=== PATIENT | male | born 1975 | race Caucasian/White ===

== ENCOUNTER 2022-04-11 21:37 | Inpatient (IN) | payer BC ==
[~2022-04-11] VITALS: Ht 165.1 cm; Wt 88.0 kg
--- NOTE | 2022-04-11 21:47 | NUR ---
Raoul gudino in [facility] - 04/11/22 at 2252 by [email or web address] PT TAKEN TO CT
[2022-04-11 21:50] VITALS: BP 160/100
--- NOTE | 2022-04-11 22:31 | NUR ---
ER MD AT BEDSIDE EXAMINING PT
--- NOTE | 2022-04-11 22:47 | NUR ---
PT TAKEN TO CT
[2022-04-11 22:48] LABS: BILIRUBIN,URINE NEGATIVE (NEGATIVE); BLOOD, URINE 3+ (NEGATIVE); COLOR,URINE YELLOW (YELLOW); LEUKOCYTE ESTERASE ,URINE NEGATIVE (NEGATIVE); NITRITE, URINE NEGATIVE (NEGATIVE); UGLUCOSE NEGATIVE (NEGATIVE)
--- NOTE | 2022-04-11 22:53 | NUR ---
47 Y/O MALE BIBS FROM HOME, C/O LEFT FLANK PAIN RAD TO BACK SINCE 1800. PT IS CURRENTLY IN NO PAIN. UNLABORED BREATHING; AMBULATORY W/O ASSISTANCE; A/OX4. DENIES FEVER, COUGH, CP, OR SOB. HX: KIDNEY STONES NKA
[2022-04-11 23:08] LABS: ANION GAP 12.5 (8-16); CARBON DIOXIDE 27.5 mmol/L (21-32); CREATININE 0.9 mg/dL (0.6-1.3)
[2022-04-11] MEDS ORDERED: HYDROcodone/APAP 5/325 MG 1 TAB TAB PO ONE (23:15)
[2022-04-11] MEDS ORDERED: KETOROLAC 30 MG/ML VIAL IM ONE (23:15)
[2022-04-11 23:16] LABS: APPEARANCE,URINE SLIGHTLY HAZY (CLEAR)
[2022-04-11 23:17] LABS: RBC,URINE >100 /HPF (0-5); WBC,URINE 0-5 /HPF (0-5)
[2022-04-11] MEDS ORDERED: NACL 0.9% 1,000 ML IV ONE (23:30)
[2022-04-11] MEDS ORDERED: ZOLP10TA1 PO (23:33)
[2022-04-11 23:36] LABS: HEMOGLOBIN 17.4 g/dL (12.0-18.0); MONOCYTES # (AUTO) 0.5 K/uL (0.8-1.0)
[2022-04-11] MEDS ORDERED: ACETAMINOPHEN 325 MG TAB PO PRN (23:50)
[2022-04-11] MEDS ORDERED: LORazepam 2 MG/ML VIAL IM/IVP PRN (23:50)
[2022-04-11] MEDS ORDERED: DOCUSATE SODIUM 100 MG GELCAP PO PRN (23:50)
[2022-04-11] MEDS ORDERED: HYDROcodone/APAP 5/325 MG 1 TAB TAB PO PRN (23:50)
[2022-04-11] MEDS ORDERED: ONDANSETRON 4 MG/2 ML VIAL IM/IVP PRN (23:50)
[2022-04-11] MEDS ORDERED: ZOLPIDEM 5 MG TAB PO PRN (23:50)
[2022-04-11] MEDS ORDERED: MAG SULF 2000 MG/WATER PREMIX 50 ML IV PRN (23:50)
[2022-04-11] MEDS ORDERED: POTASSIUM CHLORIDE 10 MEQ TABER PO PRN (23:50)
[2022-04-11] MEDS ORDERED: MORPHINE SULFATE 2 MG/ML SYR IVP PRN (23:50)
[2022-04-11 23:53] LABS: BASOPHILS % (AUTO) 0.1 % (0.0-2.0); HEMATOCRIT 50.8 % (36-52); LYMPHOCYTES # (AUTO) 1.5 K/uL (2.0-11.5); LYMPHOCYTES % (AUTO) 8.8 % (20.5-51.1); MEAN CORPUSCULAR HEMOGLOBIN 31 pg (27-31); MEAN CORPUSCULAR HGB CONC 34 g/dL (33-37); MEAN CORPUSCULAR VOLUME 89.9 fL (80-94); MONOCYTES % (AUTO) 2.8 % (1.7-9.3); NEUTROPHILS # (AUTO) 14.7 K/uL (1.8-7.7); PLATELET COUNT (AUTO) 290 K/uL (140-450); RED BLOOD CELL COUNT(AUTO) 5.65 MIL/uL (4.20-6.10); RED CELL DISTRIBUTION WIDTH 13.3 % (11.6-13.7); WHITE BLOOD COUNT (AUTO) 16.6 K/uL (4.8-10.8)
[2022-04-12 00:04] LABS: NEUTROPHILS % (AUTO) 88.3 % (42.2-75.2)
[2022-04-12] MEDS ORDERED: cefTRIAXone 1,000 MG VIAL ONE (00:08)
--- NOTE | 2022-04-12 00:26 | NUR ---
COVID/DAVE SWAB COLLECTED AND WALKED TO LAB
[2022-04-12 00:52] LABS: PROTHROMBIN TIME 10.4 secs (10.8-13.4)
[2022-04-12 01:12] LABS: THYROID STIMULATING HORMONE 1.44 uIU/mL (0.34-3.74)
[2022-04-12] MEDS: NACL 0.9% 1,000 ML IV SCH ×2 (02:36→08:52)
[2022-04-12 06:31] LABS: BASOPHILS # (AUTO) 0.1 K/uL (0.00-0.22); EOSINOPHILS # (AUTO) 0.1 K/uL (0-0.4); MEAN CORPUSCULAR HEMOGLOBIN 31 pg (27-31); MEAN CORPUSCULAR HGB CONC 35 g/dL (33-37); MONOCYTES # (AUTO) 0.7 K/uL (0.8-1.0); RED BLOOD CELL COUNT(AUTO) 5.14 MIL/uL (4.20-6.10); RED CELL DISTRIBUTION WIDTH 13.2 % (11.6-13.7); WHITE BLOOD COUNT (AUTO) 11.4 K/uL (4.8-10.8)
--- NOTE | 2022-04-12 06:44 | NUR ---
PATIENT HAS BEEN SCREENED AND CATEGORIZED MODERATE NUTRITION RISK. PATIENT WILL BE SEEN WITHIN 3-5 DAYS OF ADMISSION. 04/14/22-04/16/22 KATHIA BURNS MS, RDN
[2022-04-12 06:54] LABS: BASOPHILS % (AUTO) 0.6 % (0.0-2.0); EOSINOPHILS % (AUTO) 0.5 % (0.0-4.0); HEMATOCRIT 45.7 % (36-52); HEMOGLOBIN 15.9 g/dL (12.0-18.0); LYMPHOCYTES # (AUTO) 3.4 K/uL (2.0-11.5); LYMPHOCYTES % (AUTO) 29.9 % (20.5-51.1); MEAN CORPUSCULAR VOLUME 89.1 fL (80-94); MONOCYTES % (AUTO) 5.9 % (1.7-9.3); NEUTROPHILS # (AUTO) 7.2 K/uL (1.8-7.7); NEUTROPHILS % (AUTO) 63.1 % (42.2-75.2); PLATELET COUNT (AUTO) 270 K/uL (140-450)
[2022-04-12 07:08] LABS: ANION GAP 11.2 (8-16); CARBON DIOXIDE 27.5 mmol/L (21-32); CREATININE 0.9 mg/dL (0.6-1.3); POTASSIUM 3.7 mmol/L (3.5-5.1)
--- NOTE | 2022-04-12 07:15 | NUR ---
TRANSFER OF CARE REPORT GIVEN TO YURIY KEN
[2022-04-12 07:17] LABS: CHOL/HDL RATIO 6.3 (1-4.5); MAGNESIUM 2.1 mg/dL (1.8-2.4); PHOSPHORUS 3.4 mg/dL (2.5-4.9)
[2022-04-12] MEDS ORDERED: TAMSULOSIN 0.4 MG CAP PO SCH (08:30)
[2022-04-12] MEDS ORDERED: TAMS0.4C96 PO (12:57)
[2022-04-12] MEDS ORDERED: CEPH-588 PO ×2 (12:58→13:15)
[2022-04-12 13:18] VITALS: BP 152/75
--- NOTE | 2022-04-12 13:18 | NUR ---
Patient does not wish to proceed with medical care recommended by . Patient given information related to possible complications, up to and including , which could occur as a result of leaving hospital at this time. Patient verbalizes understanding of risks involved leaving against medical advice. Patient has signed AMA form.
[2022-04-12] MEDS ORDERED: ZOLPIDEM 10 MG TAB PO SCH (21:00)
== END 2022-04-12 13:18 | disposition left against medical advice (07) | DRG 872 ==
LOC: MED 21:37 → MTU 23:40
DX: A41.9 Sepsis, unspecified organism (principal); N13.6 Pyonephrosis; E86.0 Dehydration; E78.2 Mixed hyperlipidemia; Z20.822 Contact with and (suspected) exposure to COVID-19; Z53.29 Procedure and treatment not carried out because of patient's decision for other reasons; Z79.2 Long term (current) use of antibiotics; Z79.899 Other long term (current) drug therapy
CPT/HCPCS: 36415; 80048; 81001; 82150; 83036; 83605; 83690; 83735; 83880; 84100; 84134; 84443; 85025; 85610; 85730; 87040; 87086; 96361; 96365; 99285; J0696; J1644; J1885; J7030; J7060